=== PATIENT | female | born 1965 | race Caucasian/White ===

== ENCOUNTER 2022-04-30 18:17 | Inpatient (IN) ==
[2022-04-30] MEDS ORDERED: KETOROLAC 30 MG/1 ML VIAL IV STA (21:11)
[2022-04-30] MEDS ORDERED: ONDANSETRON 4 MG/2 ML VIAL IV STA (21:11)
[2022-04-30] MEDS ORDERED: SODIUM CHLORIDE 0.9% 1,000 ML IV STA (21:11)
[2022-04-30 21:54] LABS: Basophils # 0.1 10*3/uL (0.0-0.2); Basophils % 0.3 % (0.0-0.8); Hematocrit 49.2 VOL% (35.7-47.0); Hemoglobin 16.7 GM/DL (12.0-16.0); Immature Granulocytes % 0.7 %; Immature Granulocytes Absolute 0.18 #; Lymphocytes # 1.3 10*3/uL (1.4-4.0); Lymphocytes % 5.1 % (21.3-54.2); Mean Corpuscular HGB Conc 33.9 GM/DL (32-36); Mean Corpuscular Volume 90.9 FL (87-102); Mean Platelet Volume 10.2 FL (9.6-12.0); Monocytes # 1.5 10*3/uL (0.11-0.8); Monocytes % 6.3 % (1.7-12.7); Neutrophils % 87.6 % (38.7-73.9); Platelet Count 309 T/CUMM (130-400); Red Blood Count 5.41 MC/CUMM (3.8-5.5); Red Cell Distribution Width 13.2 % (9.3-17.3); White Blood Count 24.3 T/CUMM (4-12)
[2022-04-30 22:12] LABS: Albumin 4.1 G/DL (3.4-5.0); Bilirubin,Total 0.8 MG/DL (0.20-1.00); Calcium 9.7 MG/DL (8.5-10.1); Osmolality,Calculated 276.8 MOS/KG (273-304); Potassium 3.8 MMOL/L (3.5-5.1); Total Protein 7.7 G/DL (6.4-8.2)
[2022-04-30 22:27] LABS: Lymphocytes 6 % (20-55); Total Cells Counted 100
[2022-04-30 22:28] LABS: Platelet Estimate Adequate
[2022-04-30 22:34] LABS: Atypical Lymphocytes Few
[2022-04-30 22:43] LABS: Mucus,Urine Occasional /LPF (Occasional); RBC,Urine 1 /HPF (0-4); Squamous Epithelial Cell,Urine Occasional /HPF (0-10)
[2022-04-30] MEDS ORDERED: MEROPENEM 2,000 MG in SODIUM CHLORIDE 0.9% 100 ML IV ONE ×2 (22:43→23:00)
[2022-04-30 22:44] LABS: Bilirubin,Urine Moderate mg/dL (Negative); Glucose,Urine (UA) Negative (Negative); Ketones,Urine 80 mg/dL (Negative); Nitrite,Urine Negative (Negative); Protein,Urine 30 mg/dL (Negative); Urine Appearance Clear (Clear); Urine Color Yellow (Yellow); Urine Specific Gravity >= 1.030 (1.001-1.035); Urine pH 5.5 (4.5-8.0)
[2022-04-30] MEDS ORDERED: MEROPENEM 1,000 MG VIAL ONE (22:44)
[2022-04-30 22:45] LABS: Blood, Urine Negative (Negative); Urine Urobilinogen 0.2 eU/dL (<2.0)
[2022-04-30] MEDS ORDERED: PIPERACILLIN/TAZOBACTAM 3,375 MG in SODIUM CHLORIDE 0.9% 100 ML IV STA (22:47)
[2022-04-30] MEDS ORDERED: MORPHINE 2 MG/1 ML SYRINGE IV STA (22:48)
[2022-04-30] MEDS ORDERED: ONDANSETRON 4 MG/2 ML VIAL IV PRN (22:51)
[2022-04-30] MEDS ORDERED: hydrALAZINE 20 MG/1 ML VIAL IV PRN (22:51)
[2022-05-01] MEDS: LACTATED RINGERS 1,000 ML IV SCH ×3 (01:21→21:26)
[2022-05-01] MEDS: MORPHINE 2 MG/1 ML SYRINGE IV PRN (03:08)
[2022-05-01 05:23] LABS: Basophils # 0.1 10*3/uL (0.0-0.2); Basophils % 0.2 % (0.0-0.8); Hematocrit 42.5 VOL% (35.7-47.0); Immature Granulocytes % 0.7 %; Immature Granulocytes Absolute 0.15 #; Lymphocytes # 1.6 10*3/uL (1.4-4.0); Lymphocytes % 7.6 % (21.3-54.2); Mean Corpuscular HGB Conc 32.9 GM/DL (32-36); Mean Corpuscular Volume 93.4 FL (87-102); Mean Platelet Volume 10.5 FL (9.6-12.0); Monocytes # 1.2 10*3/uL (0.11-0.8); Monocytes % 5.8 % (1.7-12.7); Neutrophils % 85.7 % (38.7-73.9); Red Blood Count 4.55 MC/CUMM (3.8-5.5); Red Cell Distribution Width 13.2 % (9.3-17.3); White Blood Count 21.4 T/CUMM (4-12)
[2022-05-01 05:27] LABS: Platelet Count 245 T/CUMM (130-400)
[2022-05-01 05:28] LABS: Calcium 8.7 MG/DL (8.5-10.1); Osmolality,Calculated 282.4 MOS/KG (273-304); Potassium 3.7 MMOL/L (3.5-5.1)
[2022-05-01 06:13] LABS: Band Neutrophils 6 % (0-10); Lymphocytes 6 % (20-55); Total Cells Counted 100
[2022-05-01] MEDS ORDERED: BUPIVACAINE MPF 0.25% 10 ML VIAL ONE (06:27)
[2022-05-01] MEDS ORDERED: TISSUE ADHESIVE 1 EACH APPLICATOR TOP ONE (06:27)
[2022-05-01] MEDS ORDERED: LIDOCAINE 1%/EPI INJ 20 ML VIAL ONE (06:27)
[2022-05-01] MEDS ORDERED: fentaNYL 100 MCG/2 ML VIAL ONE (06:56)
[2022-05-01] MEDS ORDERED: SEVOFLURANE 1 UNIT/15 MINUTE INH ONE ×5 (06:56→08:25)
[2022-05-01] MEDS ORDERED: ONDANSETRON 4 MG/2 ML VIAL ONE (06:56)
[2022-05-01] MEDS ORDERED: ROCURONIUM 50 MG/5 ML VIAL IV ONE (06:56)
[2022-05-01] MEDS ORDERED: KETOROLAC 30 MG/1 ML VIAL ONE (06:56)
[2022-05-01] MEDS ORDERED: ACETAMINOPHEN INJ 1,000 MG/100 ML VIAL IV ONE (06:56)
[2022-05-01] MEDS ORDERED: LIDOCAINE 2% 5 ML VIAL ONE (06:56)
[2022-05-01] MEDS ORDERED: propofoL 200 MG/20 ML VIAL IV ONE (06:56)
[2022-05-01] MEDS ORDERED: DEXAMETHASONE 4 MG/1 ML VIAL ONE ×2 (06:56→07:46)
[2022-05-01] MEDS ORDERED: MIDAZOLAM 2 MG/2 ML VIAL ONE (06:57)
[2022-05-01] MEDS ORDERED: SUCCINYLCHOLINE 200 MG/10 ML VIAL ONE (07:21)
[2022-05-01] MEDS ORDERED: ePHEDrine 50 MG/ML VIAL ONE (07:33)
[2022-05-01] MEDS ORDERED: PIPERACILLIN/TAZOBACTAM 3,375 MG VIAL IV ONE (07:34)
[2022-05-01] MEDS ORDERED: PHENYLEPHRINE 1 MG/10 ML SYRINGE IV ONE ×2 (07:35→07:46)
[2022-05-01] MEDS ORDERED: LACTATED RINGERS 1,000 ML IV ONE (07:35)
[2022-05-01] MEDS ORDERED: GLYCOPYRROLATE 0.4 MG/2 ML VIAL ONE ×2 (07:47→08:21)
[2022-05-01] MEDS ORDERED: NEOSTIGMINE 10 MG/10 ML VIAL ONE (07:48)
[2022-05-01] MEDS: PIPERACILLIN/TAZOBACTAM 3,375 MG in SODIUM CHLORIDE 0.9% 100 ML IV SCH ×2 (10:40→17:16)
[2022-05-01] MEDS: PANTOPRAZOLE 40 MG VIAL IV SCH (12:51)
[2022-05-01] MEDS ORDERED: ACETAMINOPHEN 325 MG TABLET PO PRN (15:13)
[2022-05-02] MEDS: MORPHINE 2 MG/1 ML SYRINGE IV PRN ×2 (01:34→15:48)
[2022-05-02] MEDS: PIPERACILLIN/TAZOBACTAM 3,375 MG in SODIUM CHLORIDE 0.9% 100 ML IV SCH ×3 (01:35→18:00)
[2022-05-02] MEDS: LACTATED RINGERS 1,000 ML IV SCH ×3 (04:13→16:56)
[2022-05-02 05:19] LABS: Basophils % 0.2 % (0.0-0.8); Eosinophils % 0.1 % (0.00-10.9); Hematocrit 37.3 VOL% (35.7-47.0); Hemoglobin 12.3 GM/DL (12.0-16.0); Immature Granulocytes % 1.1 %; Immature Granulocytes Absolute 0.19 #; Lymphocytes # 1.8 10*3/uL (1.4-4.0); Lymphocytes % 10.3 % (21.3-54.2); Mean Corpuscular Volume 94.9 FL (87-102); Mean Platelet Volume 10.6 FL (9.6-12.0); Monocytes # 0.9 10*3/uL (0.11-0.8); Neutrophils % 83.3 % (38.7-73.9); Platelet Count 207 T/CUMM (130-400); Red Blood Count 3.93 MC/CUMM (3.8-5.5); Red Cell Distribution Width 13.5 % (9.3-17.3); White Blood Count 17.7 T/CUMM (4-12)
[2022-05-02] MEDS: PANTOPRAZOLE 40 MG VIAL IV SCH (09:44)
[2022-05-03] MEDS: PIPERACILLIN/TAZOBACTAM 3,375 MG in SODIUM CHLORIDE 0.9% 100 ML IV SCH ×3 (01:43→18:13)
[2022-05-03 08:40] LABS: Basophils # 0.1 10*3/uL (0.0-0.2); Basophils % 0.4 % (0.0-0.8); Eosinophils # 0.2 10*3/uL (0.0-0.87); Eosinophils % 1.4 % (0.00-10.9); Hematocrit 41.1 VOL% (35.7-47.0); Hemoglobin 13.6 GM/DL (12.0-16.0); Immature Granulocytes % 0.6 %; Immature Granulocytes Absolute 0.09 #; Lymphocytes # 2.5 10*3/uL (1.4-4.0); Lymphocytes % 16.2 % (21.3-54.2); Mean Corpuscular HGB Conc 33.1 GM/DL (32-36); Mean Corpuscular Volume 95.1 FL (87-102); Mean Platelet Volume 10.4 FL (9.6-12.0); Monocytes # 0.7 10*3/uL (0.11-0.8); Monocytes % 4.8 % (1.7-12.7); Neutrophils % 76.6 % (38.7-73.9); Platelet Count 248 T/CUMM (130-400); Red Blood Count 4.32 MC/CUMM (3.8-5.5); Red Cell Distribution Width 13.8 % (9.3-17.3); White Blood Count 15.4 T/CUMM (4-12)
[2022-05-03] MEDS: PANTOPRAZOLE 40 MG VIAL IV SCH (09:18)
[2022-05-03] MEDS: LACTATED RINGERS 1,000 ML IV SCH ×2 (09:26→09:27)
[2022-05-04] MEDS: PIPERACILLIN/TAZOBACTAM 3,375 MG in SODIUM CHLORIDE 0.9% 100 ML IV SCH ×2 (01:31→09:33)
[2022-05-04] MEDS: LACTATED RINGERS 1,000 ML IV SCH ×3 (07:17→11:39)
[2022-05-04] MEDS: PANTOPRAZOLE 40 MG VIAL IV SCH (09:32)
[2022-05-04] MEDS ORDERED: HydrOXYzine PAMOATE 25 MG CAPSULE PO PRN (09:47)
[2022-05-04 11:04] VITALS: BP 132/65
[2022-05-04] MEDS ORDERED: CEFUROXIME 500 MG TABLET PO SCH (11:30)
[2022-05-05] MEDS ORDERED: FLUoxetine 20 MG CAPSULE PO SCH (09:00)
[2022-05-05] MEDS ORDERED: lisinopriL 5 MG TABLET PO SCH (09:00)
[2022-05-05] MEDS ORDERED: buPROPion XL 150 MG TABLET PO SCH (09:00)
[2022-05-05] MEDS ORDERED: OXYBUTYNIN 5 MG TABLET PO SCH (09:00)
[2022-05-05] MEDS ORDERED: TOPIRAMATE 25 MG TABLET PO SCH (09:00)
== END 2022-05-04 13:24 | disposition home or self-care (01) | DRG 339 ==
LOC: N.EDINP 18:17 → N.ED 18:17 → N.EDINP 05-01 07:05 → N.3E 05-01 12:49
PROVIDERS: ADMIT Surgery; ATTEND Surgery